=== PATIENT | female | born 1970 | race African-American/Black ===

== ENCOUNTER 2016-06-02 07:45 | Day surgery (SDC) | payer BC ==
[2016-05-13 13:11] LABS: HEMATOCRIT 38.1 % (36.0-47.0); HEMOGLOBIN 12.8 g/dL (12.0-15.5); HGB HCT DIFFERENCE 0.3; MEAN CORPUSCULAR HEMOGLOBIN 30.5 pg (27.0-33.4); MEAN CORPUSCULAR HGB CONC 33.6 g/dL (32.0-36.0); MEAN CORPUSCULAR VOLUME 91 fl (80-97); RED CELL DISTRIBUTION WIDTH 14.8 % (11.5-14.0); WHITE BLOOD COUNT 9.5 10^3/uL (4.0-10.5)
[2016-05-13 13:15] LABS: PROTHROMBIN TIME 12.4 SEC (11.4-15.4)
[2016-05-13 13:16] LABS: PARTIAL THROMBOPLASTIN TIME 30.6 SEC (23.5-35.8)
--- NOTE | 2016-05-26 13:12 | EKG REPORT ---
SEVERITY:- NORMAL ECG - SINUS RHYTHM : Confirmed by: Adan Kelly MD 26-May-2016 13:11:35
[~2016-06-02 07:45] MED LIST: CEFAZOLIN 1 GM/D5W RTU 1 GM/50 ML RTUPB IV PRN; LACTATED RINGERS 1000 ML IV PRN; LIDOCAINE 0.5% INJ-PF (5 MG/ML) 50 ML SDV SUBCUT PRN; LIDOCAINE 1%/EPINEPHRINE INJ 20 ML VIAL ONE; POVIDONE-IODINE 5% OPH PREP SOLN 30 ML ONE; SODIUM BICARBONATE 8.4% INJ 50 MEQ/50 ML DISP.SYRIN ONE
[2016-06-02] MEDS ORDERED: MIDAZOLAM 2 MG/2 ML INJ ONE (09:15)
[2016-06-02] MEDS ORDERED: FENTANYL CITRATE INJ/PF 100 MCG/2 ML AMPUL ONE (09:15)
[2016-06-02] MEDS ORDERED: PROPOFOL INJ 200 MG/20 ML VIAL IV ONE (09:16)
[2016-06-02] MEDS ORDERED: DIPHENHYDRAMINE HCL 50 MG/ML VIAL IV PRN (10:19)
[2016-06-02] MEDS ORDERED: MEPERIDINE HCL/PF INJ 25 MG/1 ML DISP.SYRIN IV PRN (10:19)
[2016-06-02] MEDS ORDERED: FENTANYL CITRATE INJ/PF 100 MCG/2 ML AMPUL IV PRN ×3 (10:19)
[2016-06-02] MEDS ORDERED: PROMETHAZINE HCL INJ 25 MG/1 ML VIAL IV PRN ×2 (10:19)
--- NOTE | 2016-06-02 11:06 | Operative Report ---
Operative Report DATE OF SURGERY: 06/02/16 PREOPERATIVE DIAGNOSIS: Deep mass of posterior neck POSTOPERATIVE DIAGNOSIS: Same OPERATION: Excision of mass of posterior neck extending down into the deep fascia with reconstruction using a posterior neck sliding advancement flap. SURGEON: DAMON RUBIO ANESTHESIA: LMAC TISSUE REMOVED OR ALTERED: Mass of posterior neck COMPLICATIONS: None ESTIMATED BLOOD LOSS: minimal PROCEDURE: The patient was brought into the operating room after being marked. The patient was placed in a sloppy lateral position. The patient was then prepped with a Betadine scrub and Betadine solution. A timeout was performed. The area for resection was outlined. Injection of 1% lidocaine with epinephrine and bicarbonate was performed for its anesthetic and hemostatic effects. An incision was then made through the skin into the subcutaneous tissue. Dissection was performed [id number] to encounter the mass. Once the mass was encountered a dissection was performed 360 in order to remove the mass Retraction was used to facilitate exposure. Dissection was performed through the deep fascial layer even though the ultrasound showed it was above but in this case it was invading the deep fascial layer and down into the deeper soft tissue. The dissection was performed in the deep fascial region taking a small piece of deep fascia with the mass so it would not be ruptured. [id number] the mass was dissected free of the surrounding tissue. Throughout the case hemostasis was achieved with the bipolar. Once the mass was completely dissected it was then removed. The area was washed with Betadine and sterile water solution. Hemostasis was confirmed. Closure was then performed using 3.0 and 4-0 Vicryl sutures. Because of the size of the mass deeper sutures were placed in order to minimize a deformity. The layers that were dissected were closed [id number] until we reached the deep dermis. 3.0 and 4-0 Vicryl was used for deep dermal sutures. A subcuticular stitch was placed using 3-0 PDS. A central support stitch was placed using 3-0 PDS. The wound was cleaned with Betadine prior to the final closure. Tincture of benzoin and Steri-Strips with a light pressure dressing was applied. Patient was then reversed from anesthesia and taken to the [facility] for recovery. The approximate size of the mass was approximately 2.1 cm. This dictation was performed with dragon naturally speaking. If there are any inconsistencies or errors please contact the physician. Subjective: No complaints Objective: Vital signs stable afebrile No bleeding Dressing intact Assessment and plan: Doing well. Elevate the operative site. Resume medications. Take antibiotics for 1 day Follow-up Full instructions were given to the patient and family and they understand Portions of this note may be dictated using [employer] voice recognition software. Occasional variations and spelling and vocabulary could be possible and are unintentional. Additionally, there is a chance that some errors may not be caught or corrected. Please notify the offer of any discrepancies noted or if any statements are unclear.
--- NOTE | 2016-06-02 11:08 | PDOC DISCHARGE SUMMARY ---
Discharge Summary (SDC) - Discharge Final Diagnosis: Deep mass of posterior neck extending into the deep fascia Date of Surgery: 06/02/16 Condition: Good Discharge Diet: Regular Respiratory Treatments at Home: Deep Breathing/Coughing Discharge Activity: Activity As Tolerated - Discharged to home
[2016-06-02 13:34] VITALS: BP 118/73
== END 2016-06-02 13:10 | disposition home or self-care (01) ==
LOC: OROUT 07:45
PROVIDERS: ATTEND Plastic Surgery
PROC: 0HB4XZX Excision of Neck Skin, External Approach, Diagnostic (ICD-10-PCS; 2016-06-02)
PROC: 0HX4XZZ Transfer Neck Skin, External Approach (ICD-10-PCS; principal; 2016-06-02 10:00)
DX: L72.0 Epidermal cyst (principal); E07.9 Disorder of thyroid, unspecified; I10 Essential (primary) hypertension; F17.210 Nicotine dependence, cigarettes, uncomplicated; Z79.899 Other long term (current) drug therapy
CPT/HCPCS: 93005; 36415 ×2; 84132; 84703; 85027; 85610; 85730; 81025; 88304 ×2; 93010; 14040; J2250; J0690; J3010; J3490 ×2; J2704; 300

== ENCOUNTER 2020-03-28 08:08 | Emergency (ER) | payer BC ==
[2020-03-28] MEDS ORDERED: MORPHINE SULFATE 10 MG/ML INJ IV ONE ×2 (09:08→13:29)
[2020-03-28] MEDS ORDERED: ONDANSETRON HCL INJ/PF 4 MG/2 ML SDV IV ONE ×2 (09:09→13:29)
[2020-03-28] MEDS ORDERED: NORMAL SALINE 1000 ML 1,000 ML IV ONE ×2 (09:10→12:01)
[2020-03-28 09:17] LABS: ABSOLUTE BASOPHILS # (AUTO) 0.1 10^3/uL (0.0-0.2); ABSOLUTE EOSINOPHILS # (AUTO) 0.1 10^3/uL (0.0-0.6); ABSOLUTE LYMPHOCYTES (AUTO) 3.6 10^3/uL (0.5-4.7); ABSOLUTE MONOCYTES (AUTO) 0.7 10^3/uL (0.1-1.4); ABSOLUTE NEUT (AUTO) 5.7 10^3/uL (1.7-8.2); BASOPHILS % (AUTO) 1.1 % (0-2); EOSINOPHILS % (AUTO) 1.4 % (0-6); HEMATOCRIT 41.6 % (36.0-47.0); HEMOGLOBIN 14.4 g/dL (12.0-15.5); LYMPHOCYTES % (AUTO) 35.3 % (13-45); MEAN CORPUSCULAR HGB CONC 34.6 g/dL (32.0-36.0); MEAN CORPUSCULAR VOLUME 92 fl (80-97); MONOCYTES % (AUTO) 6.7 % (3-13); PLATELET COUNT 239 10^3/uL (150-450); RED CELL DISTRIBUTION WIDTH 15.6 % (11.5-14.0); SEGMENTED NEUTROPHILS % (AUTO) 55.5 % (42-78); TOTAL CELLS COUNTED % (AUTO) 100 %; WHITE BLOOD COUNT 10.3 10^3/uL (4.0-10.5)
[2020-03-28 09:41] LABS: APPEARANCE,URINE CLOUDY; BILIRUBIN,URINE SMALL (NEGATIVE); COLOR,URINE YELLOW; GLUCOSE, URINE NEGATIVE (NEGATIVE); KETONES,URINE NEGATIVE (NEGATIVE); LEUKOCYTE ESTERASE,URINE NEGATIVE (NEGATIVE); NITRITE,URINE NEGATIVE (NEGATIVE); PROTEIN,URINE NEGATIVE (NEGATIVE); URINE SPECIFIC GRAVITY 1.026; UROBILINOGEN,URINE NEGATIVE mg/dL (<2.0)
--- NOTE | 2020-03-28 09:48 | RADIOLOGY REPORT (SQ) ---
EXAM DESCRIPTION: ACUTE ABDOMEN SERIES IMAGES COMPLETED DATE/TIME: 03/28/2020 9:23 am REASON FOR STUDY: decreased breath sounds/ bilat lower abd pain COMPARISON: None. NUMBER OF VIEWS: Three views. TECHNIQUE: Frontal chest, supine abdomen and upright/decubitus abdomen radiographic images acquired. LIMITATIONS: None. FINDINGS: CHEST: Lungs clear of infiltrates. FREE AIR: None. No abnormal gas collections. BOWEL GAS PATTERN: Nonobstructive pattern. No dilated loops or air fluid levels. CALCIFICATIONS: No suspicious calcifications. HARDWARE: None in the abdomen. SOFT TISSUES: No gross mass or suggestion of organomegaly. BONES: No acute fracture. No worrisome bone lesions. OTHER: No other significant finding. IMPRESSION: NO RADIOGRAPHIC EVIDENCE FOR ACUTE ABDOMINAL DISEASE. TECHNICAL DOCUMENTATION: JOB ID: [id number] [employer] All Rights Reserved Reading location - IP/workstation name: [email or web address]
--- NOTE | 2020-03-28 10:54 | RADIOLOGY REPORT (SQ) ---
EXAM DESCRIPTION: U/S NON OB PEL W/DOPPLER IMAGES COMPLETED DATE/TIME: 03/28/2020 10:36 am REASON FOR STUDY: left lower quadrant/pelvic pain,hx of ovarian cyst COMPARISON: 05/03/2014 and 10/06/2015 TECHNIQUE: Dynamic and static grayscale images acquired of the pelvis via transabdominal approach an d recorded on PACS. Additional selected color Doppler and spectral images recorded. LIMITATIONS: None. FINDINGS: UTERUS: Re- demonstration of a 1.7 x 1.5 x 1.2 cm subserosal fibroid. ENDOMETRIAL STRIPE: No focal or generalized thickening. No masses. CERVIX: No nabothian cysts. RIGHT OVARY AND DOPPLER: Normal size. No worrisome masses. Normal arterial vascular flow without evid ence for torsion. LEFT OVARY AND DOPPLER: Normal size. No worrisome masses. Normal arterial vascular flow without evide nce for torsion. Within the left adnexa there is a 5.6 x 4.6 x 3.8 cm complex structure demonstratin g a degree of posterior acoustic enhancement suggesting complicated cyst. FREE FLUID: None noted. OTHER: No other significant finding. MEASUREMENTS: UTERUS: 9.6 x 4.3 x 3.2 cm ENDOMETRIAL STRIPE: 0.4 cm RIGHT OVARY: 3.0 x 3.1 x 1.4 cm LEFT OVARY: 3.6 x 2.4 x 1.9 cm IMPRESSION: A 5.6 x 4.6 x 3.8 cm structure in the left adnexa demonstrates imaging characteristics s uggesting hemorrhagic cyst. Recommend repeat sonographic evaluation in 10 to 12 weeks to assess for expected evolution versus resolution. Re- demonstration of a small subserosal fibroid. Otherwise no rmal sonographic appearance of the uterus and adnexa. TECHNICAL DOCUMENTATION: JOB ID: [id number] [employer]- All Rights Reserved Rev-07/23 Reading location - IP/workstation name: [email or web address]
[2020-03-28 11:31] LABS: ALBUMIN 4.3 g/dL (3.5-5.0); ALKALINE PHOSPHATASE 70 U/L (38-126); ANION GAP 5 (5-19); ASPARTATE AMINO TRANSFERASE 25 U/L (14-36); BILIRUBIN,DIRECT 0.2 mg/dL (0.0-0.4); BILIRUBIN,TOTAL 0.6 mg/dL (0.2-1.3); BLOOD UREA NITROGEN 11 mg/dL (7-20); CALCIUM 9.4 mg/dL (8.4-10.2); CARBON DIOXIDE 26 mmol/L (22-30); CHLORIDE 105 mmol/L (98-107); GLUCOSE 104 mg/dL (75-110); POTASSIUM 3.7 mmol/L (3.6-5.0); TOTAL PROTEIN 7.8 g/dL (6.3-8.2)
--- NOTE | 2020-03-28 12:47 | RADIOLOGY REPORT (SQ) ---
EXAM DESCRIPTION: CT ABD/PELVIS WITH IV ORAL IMAGES COMPLETED DATE/TIME: 03/28/2020 10:48 am REASON FOR STUDY: bilat lower quad pain COMPARISON: 10/06/2015. Pelvic ultrasound same date. TECHNIQUE: CT scan of the abdomen and pelvis performed using helical scanning technique with dynamic intravenous contrast injection. No oral contrast. Images reviewed with lung, soft tissue, and bone windows. Reconstructed coronal and sagittal MPR images reviewed. Delayed images for evaluation of the urinary system also acquired. All images stored on PACS. All CT scanners at this facility use dose modulation, iterative reconstruction, and/or weight based d osing when appropriate to reduce radiation dose to as low as reasonably achievable (ALARA). [facility]: Dose Right [facility]: CareDose [facility]: Dose Right [facility]: Teradose 4D [facility]: GLG CONTRAST TYPE AND DOSE: contrast/concentration: Isovue 350.00 mmol/ml; Total Contrast Delivered: 67. 0 ml; Total Saline Delivered: 61.9 ml RENAL FUNCTION: GFR > 60. RADIATION DOSE: CT Rad equipment meets quality standard of care and radiation dose reduction techniq ues were employed. CTDIvol: 5.0 - 6.1 mGy. DLP: 569 mGy-cm.. LIMITATIONS: None. FINDINGS: LOWER CHEST: No significant findings. No nodules or infiltrates. LIVER: Liver has normal size and contour. No focal hepatic mass. Hepatic and portal veins are paten t. No biliary ductal dilation. SPLEEN: Normal size. No focal lesions. PANCREAS: No masses. No significant calcifications. No adjacent inflammation or peripancreatic fluid collections. Pancreatic duct not dilated. GALLBLADDER: No identified stones by CT criteria. No inflammatory changes to suggest cholecystitis. ADRENAL GLANDS: No significant masses or asymmetry. RIGHT KIDNEY AND URETER: No solid masses. No significant calcifications. No hydronephrosis or hyd roureter. LEFT KIDNEY AND URETER: No solid masses. No significant calcifications. No hydronephrosis or hydr oureter. AORTA AND VESSELS: No aneurysm. No dissection. Renal arteries, SMA, celiac without stenosis. RETROPERITONEUM: No retroperitoneal adenopathy, hemorrhage or masses. BOWEL AND PERITONEAL CAVITY: No masses or inflammatory changes. No free fluid or peritoneal masses. APPENDIX: Appendix is located in the mid abdomen just below the right hepatic lobe, unchanged in posi tion from previous. Normal appearance of the air filled lumen and normal caliber. No periappendicea l inflammatory change or pericecal inflammatory change. PELVIS: There is a round mass in the left adnexa measuring 4.4 x 4 by 4.7 cm. This demonstrates hete rogeneous soft tissue density with enhancement on delayed phase images, suggestive of a solid mass. This appears to be completely separate from the uterus, possibly exophytic from the left ovary versus in the broad ligament adjacent to the left ovary. Left ovary is seen separately measuring 2.4 x 2.3 by 2.3 cm, with normal left ovarian follicles. The right ovary has normal size and position measuri ng 2.2 by 1.7 by 2 cm. Uterus has normal size and contour. There is a small exophytic uterine leiom yoma at the anterior fundus unchanged from prior. No endometrial thickening or abnormal endometrial free fluid. No pelvic adenopathy. No pelvic free fluid. Urinary bladder has normal contour and sal earance. No bladder wall thickening, intraluminal bladder mass or debris. ABDOMINAL WALL: No masses. No hernias. BONES: No significant or acute findings. OTHER: No other significant finding. IMPRESSION: 1. Solid enhancing soft tissue mass in the left adnexa may be exophytic from the left ovary or possib ly within the left broad ligament. Differential includes benign and malignant neoplasms. Gynecolo gic consultation and correlation with tumor markers is recommended. Contrast-enhanced pelvic MRI may provide additional characterization. 2. No acute abnormality in the abdomen or pelvis to explain the patient's pain. TECHNICAL DOCUMENTATION: JOB ID: [id number] Quality ID # [id number]: Final reports with documentation of one or more dose reduction techniques (e.g., Au tomated exposure control, adjustment of the mA and/or kV according to patient size, use of iterative reconstruction technique) 2010 [email or web address]- All Rights Reserved Reading location - IP/workstation name: [id number]
--- NOTE | 2020-03-28 13:27 | ER Document Report ---
Entered by ZAK RAMÍREZ SCRIBE 03/28/20 0834 Acting as scribe for:KATHRYN REAGAN MD ED GI/ - General Chief Complaint: Abdominal Pain Stated Complaint: ABDOMINAL PAIN Primary Care Provider: IZABELA SALGADO MD [Primary Care Provider] - Follow up as needed Mode of Arrival: Ambulatory Information source: Patient Notes: This 49 year old female patient with a history of kidney stones and ovarian cysts presents to the ED today with complaints of LLQ abdominal pain that radiates into her back that started around 0300 yesterday morning. Patient states that it hurts to stand, ambulate, walk, or lay down. She reports pain is similar to when she had an ovarian cyst. She notes that she thought the pain may be due to constipation, so she took a laxative and had a bowel movement, but the pain persisted. Denies history of diverticulitis or diverticulosis. Denies any abdominal surgeries except for x2 Caesarean sections and a laparascopic procedure due to fibroids and "blocked" fallopian tubes. Denies associated nausea, vomiting, diarrhea, change in urination, black stools, fever, chills, cough, headache, or sore throat. She discloses that she is currently in menopause and her last menstrual period was x1 year ago. TRAVEL OUTSIDE OF THE [place] IN LAST 30 DAYS: No - Related Data Allergies/Adverse Reactions: propylthiouracil [Propylthiouracil] Adverse Reaction (Intermediate, Verified 03/28/20 08:19) Dizzy, nausea Home Medications: hctz. losartan. euthyrox. estroven Past Medical History - General Information source: Patient, [facility] Records - Social History Smoking Status: Current Every Day Smoker Chew tobacco use (# tins/day): No Smoking Education Provided: No Frequency of alcohol use: Occasional Drug Abuse: None Family History: Reviewed & Not Pertinent Patient has homicidal ideation: No - Past Medical History Cardiac Medical History: Reports: Hx Hypertension Pulmonary Medical History: Reports: Hx COPD - NO CURRENT ISSUES Endocrine Medical History: Reports: Hx Graves' Disease, Hx Hypothyroidism Renal/ Medical History: Reports: Hx Kidney Stones, Hx Ovarian Cysts Past Surgical History: Reports: Hx Section - x2, Hx Thyroid Surgery - thyroidectomy, Hx Tubal Ligation - Immunizations Hx Diphtheria, Pertussis, Tetanus Vaccination: Yes Review of Systems - Review of Systems Constitutional: See HPI. denies: Chills, Fever EENT: See HPI. denies: Throat pain Cardiovascular: No symptoms reported Respiratory: See HPI. denies: Cough Gastrointestinal: See HPI, Abdominal pain. denies: Diarrhea, Nausea, Vomiting, Black stools Genitourinary: No symptoms reported Female Genitourinary: No symptoms reported Musculoskeletal: See HPI, Back pain Skin: No symptoms reported Hematologic/Lymphatic: No symptoms reported Neurological/Psychological: See HPI. denies: Headaches -: Yes All other systems reviewed and negative Physical Exam - Vital signs Vitals: Temp Pulse Resp BP Pulse Ox 97.4 F 77 18 124/76 100 03/28/20 08:14 03/28/20 08:14 03/28/20 08:14 03/28/20 08:14 03/28/20 08:14 Interpretation: Normal - General General appearance: Alert In distress: Moderate - secondary to pain - HEENT Head: Normocephalic, Atraumatic Eyes: Normal Extraocular movements intact: Yes Pupils: PERRL Neck: Normal, Supple - Respiratory Respiratory status: No respiratory distress Chest status: Nontender Breath sounds: Normal Chest palpation: Normal - Cardiovascular Rhythm: Regular Heart sounds: Normal auscultation Murmur: No Friction rub: No Gallop: None auscultated - Abdominal Inspection: Normal Distension: No distension Bowel sounds: Normal Tenderness: Tender - Bilateral lower quadrant tenderness to palpation, worse on the left, Rebound - RLQ rebound tenderness Organomegaly: No organomegaly - Back Back: Normal, Nontender. No: CVA tenderness - Extremities General upper extremity: Normal inspection General lower extremity: Normal inspection. No: Edema - Neurological Neuro grossly intact: Yes Orientation: AAOx4 Maryana Coma Scale Eye Opening: Spontaneous Maryana Coma Scale Verbal: Oriented Maryana Coma Scale Motor: Obeys Commands [place] Coma Scale Total: 15 - Psychological Associated symptoms: Normal affect, Normal mood - Skin Skin Temperature: Warm Skin Moisture: Dry Skin Color: Normal Course - Re-evaluation Re-evalutation: 03/28/20 12:02 Patient reports her pain in the left lower quadrant pelvic region has improved and decreased after IV morphine Zofran for nausea. Patient's pelvic ultrasound does disclose that there is a left ovarian hemorrhagic cyst and most likely is the cause of her pelvic left lower quadrant pain. However patient does have an elevated lipase and a CT scan of abdomen and pelvis with oral and IV contrast is still pending at this time. 03/28/20 13:18 Patient reports her abdominal pain is still present but improved with less pain at this time. Discussed with Dr. Sandoval the on-call OB ic design engineer and he stated patient can be discharged home and follow-up as an outpatient patient most likely has a ruptured ovarian cyst hemorrhagic on the left side. - Vital Signs Vital signs: Temp Pulse Resp BP Pulse Ox 97.4 F 77 18 124/76 100 03/28/20 08:20 03/28/20 08:14 03/28/20 08:14 03/28/20 08:14 03/28/20 08:14 - Laboratory Results Result Diagrams: 03/28/20 08:35 03/28/20 11:05 Laboratory Results Interpreted: 03/28/20 03/28/20 03/28/20 08:35 08:35 11:05 RDW 15.6 H Sodium 135.9 L Urine Bilirubin SMALL H Labs- Entire Visit 03/28/20 03/28/20 03/28/20 08:35 08:35 08:35 WBC 10.3 RBC 4.50 Hgb 14.4 Hct 41.6 MCV 92 MCH 32.0 MCHC 34.6 RDW 15.6 H Plt Count 239 Lymph % (Auto) 35.3 Cobb % (Auto) 6.7 Eos % (Auto) 1.4 Baso % (Auto) 1.1 Absolute Neuts (auto) 5.7 Absolute Lymphs (auto) 3.6 Absolute Monos (auto) 0.7 Absolute Eos (auto) 0.1 Absolute Basos (auto) 0.1 Seg Neutrophils % 55.5 Sodium Cancelled Potassium Cancelled Chloride Cancelled Carbon Dioxide Cancelled Anion Gap Cancelled BUN Cancelled Creatinine Cancelled Est GFR ( Amer) Cancelled Est GFR (Non-Af Amer) Cancelled Est GFR (MDRD) Non-Af Cancelled Glucose Cancelled Lactic Acid Calcium Cancelled Total Bilirubin Cancelled Direct Bilirubin Cancelled Neonat Total Bilirubin Cancelled Neonat Direct Bilirubin Cancelled Neonat Indirect Bili Cancelled AST Cancelled ALT Cancelled Alkaline Phosphatase Cancelled Total Protein Cancelled Albumin Cancelled Lipase Cancelled EGFR Cancelled Urine Color YELLOW Urine Appearance CLOUDY Urine pH 5.0 Ur Specific [place] 1.026 Urine Protein NEGATIVE Urine Glucose (UA) NEGATIVE Urine Ketones NEGATIVE Urine Blood NEGATIVE Urine Nitrite NEGATIVE Urine Bilirubin SMALL H Urine Urobilinogen NEGATIVE Ur Leukocyte Esterase NEGATIVE Urine WBC (Auto) 1 Urine RBC (Auto) 2 Urine Bacteria (Auto) TRACE Squamous Epi Cells Auto 21 Urine Mucus (Auto) MOD Urine Ascorbic Acid NEGATIVE 03/28/20 03/28/20 09:35 11:05 WBC RBC Hgb Hct MCV MCH MCHC RDW Plt Count Lymph % (Auto) Cobb % (Auto) Eos % (Auto) Baso % (Auto) Absolute Neuts (auto) Absolute Lymphs (auto) Absolute Monos (auto) Absolute Eos (auto) Absolute Basos (auto) Seg Neutrophils % Sodium 135.9 L Potassium 3.7 Chloride 105 Carbon Dioxide 26 Anion Gap 5 BUN 11 Creatinine 0.85 Est GFR ( Amer) > 60 Est GFR (Non-Af Amer) Est GFR (MDRD) Non-Af > 60 Glucose 104 Lactic Acid 1.2 Calcium 9.4 Total Bilirubin 0.6 Direct Bilirubin 0.2 Neonat Total Bilirubin Not Reportable Neonat Direct Bilirubin Not Reportable Neonat Indirect Bili Not Reportable AST 25 ALT 12 Alkaline Phosphatase 70 Total Protein 7.8 Albumin 4.3 Lipase 278.8 EGFR Urine Color Urine Appearance Urine pH Ur Specific [place] Urine Protein Urine Glucose (UA) Urine Ketones Urine Blood Urine Nitrite Urine Bilirubin Urine Urobilinogen Ur Leukocyte Esterase Urine WBC (Auto) Urine RBC (Auto) Urine Bacteria (Auto) Squamous Epi Cells Auto Urine Mucus (Auto) Urine Ascorbic Acid 03/28/20 13:19 Laboratories essentially within normal range. Critical Laboratory Results Reviewed: No Critical Results - Radiology Results Radiology Results Interpreted: 03/28/20 12:50 Abdomen/Pelvis CT 03/28/20 00:00 IMPRESSION: 1. Solid enhancing soft tissue mass in the left adnexa may be exophytic from the left ovary or possibly within the left broad ligament. Differential includes benign and malignant neoplasms. Gynecologic consultation and correlation with tumor markers is recommended. Contrast-enhanced pelvic MRI may provide additional characterization. 2. No acute abnormality in the abdomen or pelvis to explain the patient's pain. Acute Abdomen Series 03/28/20 09:06 IMPRESSION: NO RADIOGRAPHIC EVIDENCE FOR ACUTE ABDOMINAL DISEASE. Pelvis Ultrasound 03/28/20 09:12 IMPRESSION: A 5.6 x 4.6 x 3.8 cm structure in the left adnexa demonstrates imaging characteristics suggesting hemorrhagic cyst. Recommend repeat sonographic evaluation in 10 to 12 weeks to assess for expected evolution versus resolution. Re- demonstration of a small subserosal fibroid. Otherwise normal sonographic appearance of the uterus and adnexa. 03/28/20 13:20 Pelvic ultrasound shows a left adnexal structure characteristics suggesting hemorrhagic cyst. Acute abdominal series no grade acute radiographic evidence for an acute abdominal disease. Abdominal pelvis CT shows soft tissue mass in the left adnexa that may be exo phytic of the left ovary within the broad ligament. Differential including malignant neoplasms etc. gynecology consultation correlation is recommended. No other acute abnormality in abdomen or pelvis to explain patient's pain. Critical Radiology Results Reviewed: No Critical Results - Consults Dr. Sandoval, [employer] [employer] Time consulted: 13:00 Consulted provider: follow-up in office Discharge - Discharge Clinical Impression: Hemorrhagic cyst of left ovary Condition: Stable Disposition: HOME, SELF-CARE Additional Instructions: Ovarian Cyst Your examination shows the presence of an ovarian cyst. This is a ball of fluid attached to the ovary. Ovarian cysts in women of child-bearing age are usually innocent. However, the cyst may cause pain when it grows or bursts. An innocent ovarian cyst will usually go away by itself. When the cyst becomes painful, you should rest. Pain medication may be required. Some women find a hot water bottle soothing. The pain usually resolves within one or two days. After menopause, an ovarian cyst may mean a tumor, and requires more aggressive evaluation -- usually surgery is recommended to remove or biopsy the cyst. A very large cyst requires evaluation at any age. Most cysts (even the innocent ones) require follow-up examination. Call the doctor or return at any time if the pain increases significantly, if you become faint, or if you experience vaginal bleeding. Prescriptions: Amoxicillin/Potassium Clav [Augmentin 875-125 Tablet] 1 tab PO BID #20 tab Hydrocodone/Acetaminophen [[place] 10-325 mg Tablet] 1 tab PO TID PRN #10 tablet PRN Reason: prn severe pain Ondansetron [Zofran Odt 4 mg Tablet] 1 - 2 tab PO Q4H PRN #15 tab.rapdis PRN Reason: For Nausea/Vomiting Referrals: IZABELA SALGADO MD [Primary Care Provider] - Follow up as needed MORTEZA SANDOVAL MD [ACTIVE STAFF] - Follow up in 1 week (follow up in 10m to 14 days.) I personally performed the services described in the documentation, reviewed and edited the documentation which was dictated to the scribe in my presence, and it accurately records my words and actions.
[2020-03-28 14:07] VITALS: BP 122/72
--- OUTSIDE RECORDS SUMMARY | 2020-03-28 14:32 | XMS REPORT ---
:1970 Author Organization [facility] Address [address] [address] Care Team Providers Name Role Phone Unavailable Unavailable Unavailable Allergies, Adverse Reactions, Alerts This patient has no known allergies or adverse reactions. Medications This patient has no known medications. Problems This patient has no known problems. Procedures This patient has no known procedures. Results Test Description Test Time Test Comments Text Results Atomic Results Result Comments SARS-CoV-2 RNA Resp Ql ESTEVAN+probe 2020-03-14 00:00:00 Test Item Value Reference Range Comments SARS-CoV-2 RNA Resp Ql ESTEVAN+probe Not detected [facility] Case ID: (test code = 87501-4) [id number] Social History This patient has no known social history. Vital Signs This patient has no known vital signs.
== END 2020-03-28 13:45 | disposition home or self-care (01) ==
LOC: ER 08:08
DX: N83.202 Unspecified ovarian cyst, left side (principal); R10.32 Left lower quadrant pain; F17.200 Nicotine dependence, unspecified, uncomplicated; I10 Essential (primary) hypertension; Z87.442 Personal history of urinary calculi
CPT/HCPCS: 96376; 99285; 96361; 96374; 96375; 36415; 83605; 83690; 85025; 80053; 81001; 74022; 76856; 93976; 74177; J2270; J2405; J7030